=== PATIENT | female | born 1960 | race Caucasian/White ===

== ENCOUNTER 2018-07-14 12:27 | Emergency (ER) | payer OTHER ==
[~2018-07-14] VITALS: Ht 172.7 cm; Wt 68.0 kg
[2018-07-14] MEDS ORDERED: PERCOCET 5/31 TABLET PO (13:29)
[2018-07-14 13:51] VITALS: BP 105/67
== END 2018-07-14 13:53 | disposition home or self-care (01) ==
LOC: EME 12:27
PROC: 2W3QX1Z Immobilization of Right Lower Leg using Splint (ICD-10-PCS; principal; 2018-07-14)
DX: S89.301A Unspecified physeal fracture of lower end of right fibula, initial encounter for closed fracture (principal); E11.649 Type 2 diabetes mellitus with hypoglycemia without coma; W19.XXXA Unspecified fall, initial encounter; Z79.4 Long term (current) use of insulin; Z88.5 Allergy status to narcotic agent; F17.200 Nicotine dependence, unspecified, uncomplicated
CPT/HCPCS: 73610; 82948; 99281; 99284